=== PATIENT | female | born 1960 | race Caucasian/White ===

== ENCOUNTER 2018-10-28 20:13 | Emergency (ER) | payer OTHER ==
[~2018-10-28] VITALS: Ht 162.6 cm; Wt 104.3 kg
[~2018-10-28 20:13] MED LIST: BENADRYL25 MG PO; PREDNISONE 20 M20 MG PO
[2018-10-28] MEDS ORDERED: PROZAC20 MG (20:20)
[2018-10-28] MEDS ORDERED: LIORESAL 10 MG10 MG (20:20)
[2018-10-28] MEDS ORDERED: WELLBUTRIN SR150 MG (20:21)
[2018-10-28] MEDS ORDERED: PROTONIX 20 MG20 M1 (20:22)
[2018-10-28] MEDS ORDERED: TIZANIDINE HCL2 M1 (20:23)
[2018-10-28] MEDS ORDERED: MYCOPHENOLATE500 MG (20:28)
[2018-10-28] MEDS ORDERED: IBU600 MG PO (20:59)
[2018-10-28] MEDS ORDERED: NORCO 5-325 TA1 EAC1 PO (20:59)
[2018-10-28 21:48] VITALS: BP 134/55
== END 2018-10-28 21:50 | disposition home or self-care (01) ==
LOC: M.ERS 20:13
DX: M25.461 Effusion, right knee (principal); F32.9 Major depressive disorder, single episode, unspecified; F41.9 Anxiety disorder, unspecified; Z88.2 Allergy status to sulfonamides; W10.9XXA Fall (on) (from) unspecified stairs and steps, initial encounter; Y93.89 Activity, other specified; Y92.89 Other specified places as the place of occurrence of the external cause; Y99.8 Other external cause status